=== PATIENT | male | born 2000 | race African-American/Black ===

== ENCOUNTER 2022-03-13 16:13 | Emergency (ER) | payer BC ==
[~2022-03-13] VITALS: Ht 180.3 cm; Wt 104.3 kg
[2022-03-13 16:15] VITALS: BP_SYST 130
[2022-03-13] MEDS ORDERED: FAMO-132 PO (17:24)
[2022-03-13] MEDS ORDERED: SIME125T69 PO (17:24)
== END 2022-03-13 17:43 | disposition home or self-care (01) ==
LOC: SED 16:13
DX: K92.1 Melena (principal); R10.10 Upper abdominal pain, unspecified; Z79.899 Other long term (current) drug therapy
CPT/HCPCS: 99282

== ENCOUNTER 2022-07-14 22:51 | Emergency (ER) | payer BC ==
[~2022-07-14] VITALS: Ht 180.3 cm; Wt 108.9 kg
[~2022-07-14 22:51] MED LIST: FAMO-132 PO; SIME125T69 PO
[2022-07-14 23:11] VITALS: BP_SYST 144
[2022-07-15 00:34] LABS: BASOPHILS % (AUTO) 0.3 % (0.0-2.0); EOSINOPHILS % (AUTO) 0.1 % (0.0-4.0); HEMATOCRIT 45.1 % (36-54); HEMOGLOBIN 15.3 g/dL (14.0-18.0); LYMPHOCYTES # (AUTO) 2.2 K/uL (1.0-5.5); LYMPHOCYTES % (AUTO) 22.1 % (20.5-51.5); MEAN CORPUSCULAR HEMOGLOBIN 30 pg (27-31); MEAN CORPUSCULAR HGB CONC 34 % (32-36); MEAN CORPUSCULAR VOLUME 89 fL (79.0-98.0); MONOCYTES # (AUTO) 0.6 K/uL (0.0-1.0); MONOCYTES % (AUTO) 6.3 % (1.7-9.3); NEUTROPHILS # (AUTO) 7.1 K/uL (1.8-7.7); NEUTROPHILS % (AUTO) 71.2 % (40.0-70.0); PLATELET COUNT (AUTO) 223 K/uL (130-430); RED BLOOD CELL COUNT(AUTO) 5.09 MIL/uL (4.2-6.2); RED CELL DISTRIBUTION WIDTH 12.9 % (9.0-15.0); WHITE BLOOD COUNT (AUTO) 9.9 K/uL (4.5-11.0)
[2022-07-15 00:47] LABS: ALBUMIN 3.9 g/dL (3.4-4.8); CALCIUM 8.7 mg/dL (8.4-11.0); CREATININE 1.03 mg/dL (0.55-1.30); TOTAL BILIRUBIN 1.1 mg/dL (0.0-1.0)
[2022-07-15 00:55] LABS: THYROID STIMULATING HORMONE 1.27 uIu/mL (0.36-3.74)
[2022-07-15 01:17] LABS: BARBITURATE, URINE NEGATIVE (NEG <=200); BENZODIAZEPINE, URINE NEGATIVE (NEG <=150); CANNABINOID, URINE NEGATIVE (NEG <=50); COCAINE, URINE NEGATIVE (NEG <=150); METHAMPHETAMINES SCREEN,URINE NEGATIVE (NEG <=500); OPIATE, URINE NEGATIVE (NEG <=100); PHENCYCLIDINE SCREEN,URINE NEGATIVE (NEG <=25); URINE AMPHETAMINE NEGATIVE (NEG <=500); URINE METHADONE NEGATIVE (NEG <=200); URINE OXYCODONE SCREEN NEGATIVE (NEG <=100); URINE PROPOXYPHENE SCREEN NEGATIVE (NEG <=300)
[2022-07-15 01:18] LABS: UR TRICYCLIC ANTIDEPRESSANTS NEGATIVE (NEG <=300)
[2022-07-15 01:48] VITALS: BP_SYST 140
== END 2022-07-15 01:48 | disposition home or self-care (01) ==
LOC: SED 22:51
DX: K92.1 Melena (principal); R00.0 Tachycardia, unspecified; K59.00 Constipation, unspecified; Z79.899 Other long term (current) drug therapy
CPT/HCPCS: 36415; 80053; 80307; 84443; 85025; 93005; 99284